=== PATIENT | male | born 1990 | race Caucasian/White ===

== ENCOUNTER 2023-09-28 03:01 | Emergency (ER) | payer OTHER ==
[2023-09-28 03:17] VITALS: TEMP 97.3
[2023-09-28] MEDS ORDERED: TETRACAINE 0.5% STERI-UNIT SOL OP ONE (03:18)
[2023-09-28] MEDS ORDERED: Cyclogyl 1% EYE DROPS OP ONE ×2 (03:18→03:34)
[2023-09-28] MEDS ORDERED: Eye-Stream Solution ONE (03:21)
[2023-09-28] MEDS ORDERED: Fluor-I-Strip/Ful-Flo OP ONE ×2 (03:21→03:33)
[2023-09-28] MEDS ORDERED: Tobrex EYE DROPS 5 ML OP ONE ×2 (03:33→03:39)
[2023-09-28] MEDS ORDERED: TETRACAINE 0.5% STERI-UNIT SOL OP STA (03:33)
[2023-09-28] MEDS ORDERED: Eye-Stream Solution OP ONE (03:33)
--- NOTE | 2023-09-28 03:33 | ERPHSYRPT ---
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 states he thinks he burned his eyes Triage Nursing Assessment: pt alert and oriented, answers questions approp. pt ambulates into room with steady gait noted. pt states unable to open his eyes for more than a few secoinds. clear tearing from bilat eyes. 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 He could not see so he took his mask off and tried to close his eyes but still caught flash from the welding arc. About 9 hours later he did develop severe pain photophobia etc. Timing/Duration: today Location: bilateral eyes Severity: severe Apparent Injury: yes Associated Symptoms: pain, burning, sensitivity to light, redness, foreign body sensation, blurred vision Allergies/Adverse Reactions: No Known Drug Allergies Allergy (Verified 09/28/23 03:07) Hx Tetanus, Diphtheria Vaccination/Date Given: Yes Hx Influenza Vaccination/Date Given: No Hx Pneumococcal Vaccination/Date Given: No Immunizations Up to Date: Yes Travel Risk - International Travel Have you traveled outside of the country in past 3 weeks: No - Coronavirus Screening Are you exhibiting any of the following symptoms?: No Close contact with a COVID-19 positive Pt in past 14-21 Days: No - Vaccine Status Have you recieved a Covid-19 vaccination: No - Review of Systems Constitutional: No Fever, No Chills Eyes: Eye Pain, Eye Redness, Photophobia, Tearing, Vision Changes, Foreign Body Sensation Ears, Nose, & Throat: No Symptoms Respiratory: No Cough, No Dyspnea Cardiac: No Chest Pain, No Edema, No Syncope Abdominal/Gastrointestinal: No Abdominal Pain, No Nausea, No Vomiting, No Diarrhea Genitourinary Symptoms: No Dysuria Musculoskeletal: No Back Pain, No Neck Pain Skin: No Rash Neurological: No Dizziness, No Focal Weakness, No Sensory Changes Psychological: No Symptoms Endocrine: No Symptoms All Other Systems: Reviewed and Negative - Past Medical History Pertinent Past Medical History: No - Past Surgical History Past Surgical History: No - Social History Smoking Status: Current every day smoker How long have you smoked: 10 Exposure to second hand smoke: No Drug Use: none Patient Lives Alone: No - Nursing Vital Signs Nursing Vital Signs: Initial Vital Signs Temperature 97.3 F 09/28/23 03:09 Pulse Rate 91 H 09/28/23 03:09 Respiratory Rate 18 09/28/23 03:09 Blood Pressure 142/90 09/28/23 03:09 O2 Sat by Pulse Oximetry 99 09/28/23 03:09 Pain Scale Pain Intensity 10 - Physical Exam General Appearance: severe distress, alert, anxiety Vision Acuity Degree Evaluation Phase: Uncorrected Vision Acuity Right Eye: Unable to tolerate opening the eyes Vision Acuity Left Eye: Unable to tolerate opening the Eye Exam: bilateral eye: PERRL, EOMI, corneal abrasion, vision changes Ears, Nose, Throat Exam: normal ENT inspection Neck Exam: normal inspection, non-tender, supple Neurologic: alert, oriented x 3 Skin Exam: normal color, warm, dry SpO2 Interpretation: normal SpO2: 99 O2 Delivery: Room Air Procedures - Eye Procedure Time of Procedure: 03:31 Tetracaine Drops Administered: Yes Antibiotic Oinment/Drps Admin: both eyes Progress: , Patient had obvious bilateral UV keratitis he was treated with Cyclogyl,Percocet fives, cool compresses and antibiotic drops.Fluorescein dye did show bilateral corneal punctate lesions. - Course Nursing assessment & vital signs reviewed: Yes Ordered Tests: Medication Summary Discontinued Medications Generic Name Dose Route Start Last Admin Trade Name Miguel PRN Reason Stop Dose Admin Cyclopentolate HCl Confirm 09/28/23 03:18 Cyclopentolate Hcl 2 Ml Bottle Eye Drops Administered 09/28/23 03:19 Dose 2 ml OP .STK-MED ONE Cyclopentolate HCl 2 ml 09/28/23 03:34 09/28/23 03:35 Cyclopentolate Hcl 2 Ml Bottle Eye Drops OP 09/28/23 03:35 2 ml STAT ONE Administration Eye Irrigation Solution Confirm 09/28/23 03:21 Sodium/Potassium/Demetri/Magnesium 30 Ml Eye Wash Administered 09/28/23 03:22 Dose 30 ml .ROUTE .STK-MED ONE Eye Irrigation Solution 15 ml 09/28/23 03:33 09/28/23 03:36 Sodium/Potassium/Demetri/Magnesium 30 Ml Eye Wash OP 09/28/23 03:34 15 ml STAT ONE Administration Fluorescein Sodium Confirm 09/28/23 03:21 Fluorescein Sodium 1 Mg/Strip Strip Administered 09/28/23 03:22 Dose 1 mg OP .STK-MED ONE Fluorescein Sodium 1 mg 09/28/23 03:33 09/28/23 03:36 Fluorescein Sodium 1 Mg/Strip Strip OP 09/28/23 03:34 1 mg STAT ONE Administration Tetracaine HCl Confirm 09/28/23 03:18 Tetracaine Hcl/Pf 4 Ml Bottle Administered 09/28/23 03:19 Dose 4 ml OP .STK-MED ONE Tetracaine HCl 4 ml 09/28/23 03:33 09/28/23 03:36 Tetracaine Hcl/Pf 4 Ml Bottle OP 09/28/23 03:34 4 ml STAT STA Administration Tobramycin Sulfate Confirm 09/28/23 03:33 Tobramycin Sulfate 0.3% 5 Ml Bottle Eye Drops Administered 09/28/23 03:34 Dose 5 ml OP .STK-MED ONE Tobramycin Sulfate 5 ml 09/28/23 03:39 09/28/23 03:42 Tobramycin Sulfate 0.3% 5 Ml Bottle Eye Drops OP 09/28/23 03:40 5 ml STAT ONE Administration - Progress Progress: improved Medical Desision Making - Independent Historian Additional History obtained from: Spouse - Risk of complications Minimal Risk: Minimal risk of morbidity - Departure Departure Disposition: Home Clinical Impression: Photokeratitis of both eyes Condition: Stable Critical Care Time: No Instructions: Photokeratitis (arc eye) Additional Instructions: , Prescriptions: Oxycodone/APAP 5 mg/325 mg [Percocet Tablet 5/325Mg] 1 tab PO Q6H 2 Days #6 tablet MDD 4
[2023-09-28] MEDS ORDERED: PERCOCET TABLET 5/325MG PO STA (03:45)
[2023-09-28] MEDS ORDERED: PERCOCET TABLET 5/325MG ONE (03:46)
[2023-09-28 04:04] VITALS: BP 127/84; PULSE 73; RESP 16; O2SAT 97
== END 2023-09-28 04:04 | disposition home or self-care (01) ==
LOC: ED 03:01
DX: H16.133 Photokeratitis, bilateral (principal); W89.0XXA Exposure to welding light (arc), initial encounter; Z79.891 Long term (current) use of opiate analgesic; Z28.310 Unvaccinated for COVID-19; Z72.0 Tobacco use
CPT/HCPCS: 99281; A9270-GY